=== PATIENT | male | born 1950 ===

== ENCOUNTER 2018-02-20 16:51 | Emergency (ER) | payer MEDICARE ==
[2018-02-20 17:07] VITALS: RESP 18
--- NOTE | 2018-02-20 17:13 | C.PDOC ---
- HPI Time Seen by Provider: 02/20/18 17:01 Chief Complaint (Nursing): Trauma Past Medical History Vital Signs: Last Vital Signs Temp 98.5 F 02/20/18 17:02 Pulse 93 H 02/20/18 17:02 Resp 18 02/20/18 17:02 BP 110/74 02/20/18 17:02 Pulse Ox 98 02/20/18 17:02 - Medical History PMH: HTN, Hypercholesterolemia Surgical History: Coronary Stent (X 2) - Social History Hx Alcohol Use: Yes Hx Substance Use: No - Immunization History Hx Tetanus Toxoid Vaccination: No Hx Influenza Vaccination: No Hx Pneumococcal Vaccination: No ED Course And Treatment O2 Sat by Pulse Oximetry: 98 Disposition - Disposition
[2018-02-20] MEDS ORDERED: Lidocaine 2% Inj (20ml) INFIL ONE (17:17)
[2018-02-20] MEDS ORDERED: Tetanus/Diphtheria Toxoids 0.5 ml Syringe IM ONE ×2 (17:17→17:42)
[2018-02-20] MEDS ORDERED: Lidocaine 2% Inj (20ml) ONE (17:22)
[2018-02-20 17:30] LABS: BASO # 0.1 K/uL (0.0-0.2); BASO % 0.5 % (0.0-2.0); EOS # 0.1 K/uL (0.0-0.7); EOS % 1.2 % (0.0-4.0); HEMOGLOBIN 13.4 g/dL (12.0-18.0); LYMPH % 18.2 % (20.0-40.0); MEAN CELL VOLUME 88.3 fL (80.0-94.0); MEAN CORPUSCULAR HEMOGLOBIN 30.4 pg (27.0-31.0); MEAN CORPUSCULAR HGB CONC 34.4 g/dL (33.0-37.0); MEAN PLATELET VOLUME 8.4 fL (7.2-11.7); MONO # 0.6 K/uL (0.0-0.8); MONO % 5.1 % (0.0-10.0); NEUT # 8.4 K/uL (1.8-7.0); NRBC % 0.1 % (0.0-2.0); RBC 4.41 Mil/uL (4.40-5.90); RED CELL DISTRIBUTION WIDTH 13.2 % (11.5-14.5); WHITE BLOOD COUNT 11.1 K/uL (4.8-10.8)
--- NOTE | 2018-02-20 17:34 | C.PDOC ---
History Of Present Illness 67 year old male w/o significant PMHX is brought to the ED by EMS for evaluation after he sustained a head injury at home prior to arrival. Patient states that he slipped on the tiles of his kitchen floor, fell down, and hit his left forehead against the corner of a table. Patient now complains of a laceration to his left forehead region and nasal contusion. Patient states he passed out for a second. He admits to "drinking alcohol little" today. Otherwise, pt denies dizziness, visual changes, focal deficits, neck pain, CP, SOB, dyspnea, diaphoresis, abd. pain, N/V, back pain, incontinence, saddle anesthesia, denies pain/discomfort over bilateral upper and lower extremities. Ambulatory in Ed with stable gait, AAO#3. - HPI Time Seen by Provider: 02/20/18 17:01 Chief Complaint (Nursing): Trauma History Per: Patient, EMS History/Exam Limitations: no limitations Onset/Duration Of Symptoms: Hrs Injury Occurred (Timing): Just Before Arrival Location Of Injury: Left: Head (forehead) Associated Symptoms: LOC Additional History Per: Patient, EMS - Fall Fall:Prior To Injury: Other (slipped ) Past Medical History Reviewed: Historical Data, Nursing Documentation, Vital Signs Vital Signs: Last Vital Signs Temp 98.5 F 02/20/18 17:02 Pulse 93 H 02/20/18 17:02 Resp 18 02/20/18 17:02 BP 110/74 02/20/18 17:02 Pulse Ox 98 02/20/18 17:42 - Medical History PMH: HTN, Hypercholesterolemia Surgical History: Coronary Stent (X 2) Family History: States: Unknown Family Hx - Social History Hx Alcohol Use: Yes Hx Substance Use: No - Immunization History Hx Tetanus Toxoid Vaccination: No Hx Influenza Vaccination: No Hx Pneumococcal Vaccination: No Review Of Systems Eyes: Negative for: Vision Change Cardiovascular: Negative for: Chest Pain, Palpitations Gastrointestinal: Negative for: Nausea, Vomiting Musculoskeletal: Negative for: Neck Pain Skin: Positive for: Other (laceration to left forehead ) Neurological: Positive for: Other (loss of consciousness). Negative for: Weakness, Numbness, Change in Speech, Confusion, Altered Mental Status, Headache , Dizziness Physical Exam - Physical Exam Appears: Well, Non-toxic, No Acute Distress Skin: Normal Color, Warm, Dry Head: Normacephalic, Laceration (5cm irregular cutaneous to left forehead/ medial aspect eyebrow with mild bloody oozing, no palpable deformity, no wound FB.) Eye(s): bilateral: PERRL, EOMI Ear(s): Bilateral: Normal Nose: No Flaring, Deformity (nasal bridge), No Septal Hematoma, Other (2cm cutaneous laceration over nasal bridge with mild bloody oozing, s/p bilateral epistaxis. No acute bleeding noted. ) Oral Mucosa: Moist, No Drooling, No Trismus Tongue: Normal Appearing Lips: Normal Appearing Throat: No Drooling Neck: Trachea Midline, No Midline Cervical Tenderness, No Paracervical Tenderness, No Step Off Deformity, Supple Chest: Symmetrical, No Deformity, No Tenderness Cardiovascular: Rhythm Regular, No Murmur Respiratory: No Decreased Breath Sounds, No Accessory Muscle Use, No Rales, No Rhonchi, No Wheezing Gastrointestinal/Abdominal: Soft, No Tenderness, No Distention, No Guarding, No Rebound Back: No Vertebral Tenderness, No Paraspinal Tenderness Extremity: Normal ROM, No Tenderness, Capillary Refill (less than 2 seconds ), No Deformity, No Swelling Neurological/Psych: Oriented x3, Normal Speech, Normal Cognition, Normal Motor, Normal Sensation, Normal Reflexes ED Course And Treatment - Laboratory Results Result Diagrams: 02/20/18 17:26 02/20/18 17:26 Lab Interpretation: No Acute Changes O2 Sat by Pulse Oximetry: 98 (on RA) Pulse Ox Interpretation: Normal Progress Note: Bloodwork, urinalysis, CT Head, CT Maxillofacial, and CT Cervical Spine ordered. As per [facility] [place], pt refused tetanus and imaging. Spoke with pt, explained risk of leaving AMA with uknown or untreated condition to patient, including sudden . Pt is AA#3, able to make decision, refuses all further evaluation and treatment, wish to go home now. Pt advised, ref. to f/uw ith PMD or rfetrn to Ed at any time to complete evaluation. On re- evaluation.pt is afebrile, hemodynamicaly stable. Ambulatory in ED with stable gait. Pt will be discharged AMA. Laceration - Laceration Repair Left eyebrown/forehead Wound Length (In cm): 5 Description Of Wound: Irregular Anesthesia: Lidocaine 2% Wound Examination: Irrigated With Saline, No FB With Wound Exploration Wound Closure: Suture (#11) Suture Technique And Material Used: Interrupted, Nylon (5-0) Wound Complexity: Simple Nasal bridge Wound Length (In cm): 2 Description Of Wound: Irregular Anesthesia: Lidocaine 2% Wound Examination: Irrigated With Saline, No FB With Wound Exploration Wound Closure: Suture (#2) Suture Technique And Material Used: Interrupted, Nylon (5-0) Wound Complexity: Simple Disposition - Disposition Referrals: [facility] [Outside] Disposition: AGAINST MEDICAL ADVICE Disposition Time: 18:28 Condition: STABLE Additional Instructions: RETURN TO ED AT ANY TIME TO COMPLETE MEDICAL EVALUATION. SUTURE REMOVAL IN 7-10 DAYS Instructions: Concussion in Adults, Skull and Facial Fractures (DC), Closed Head Injury, Laceration Repair With Stitches (DC) Forms: [employer] (Citizen [place]) - Clinical Impression Clinical Impression: Head injury with loss of consciousness, Facial contusion, Laceration - PA / EXCEL ANALYST / Resident Statement MD/DO has reviewed & agrees with the documentation as recorded. - Scribe Statement The provider has reviewed the documentation as recorded by the Scribe (Mandi Enriquez) All medical record entries made by the Scribe were at my direction and personally dictated by me. I have reviewed the chart and agree that the record accurately reflects my personal performance of the history, physical exam, medical decision making, and the department course for this patient. I have also personally directed, reviewed, and agree with the discharge instructions and disposition.
[2018-02-20 17:42] LABS: PROTHROMBIN TIME 11.1 SECONDS (9.7-12.2)
[2018-02-20 17:54] LABS: BLOOD UREA NITROGEN 17 mg/dL (9-20); CALCIUM 8.7 mg/dl (8.6-10.4); GFR AFRICAN-AMERICAN > 60; GFR NON-AFRICAN AMERICAN > 60
[2018-02-20 18:52] VITALS: BP 144/82; PULSE 99; TEMP 98.9; O2SAT 97
== END 2018-02-20 18:52 | disposition left against medical advice (07) ==
LOC: C.ER 16:51
DX: S01.81XA Laceration without foreign body of other part of head, initial encounter (principal); S01.21XA Laceration without foreign body of nose, initial encounter; S06.9X9A Unspecified intracranial injury with loss of consciousness of unspecified duration, initial encounter; W01.190A Fall on same level from slipping, tripping and stumbling with subsequent striking against furniture, initial encounter; Y92.000 Kitchen of unspecified non-institutional (private) residence as the place of occurrence of the external cause